=== PATIENT | male | born 1990 | race Caucasian/White ===

== ENCOUNTER 2016-06-24 18:11 | Emergency (ER) | payer SELFPAY ==
[2016-06-24] MEDS ORDERED: Fluorescein Opthalmic Strip ONE (18:26)
[2016-06-24] MEDS ORDERED: Proparacaine 0.5% Opth 15 ML BOT ONE (18:26)
== END 2016-06-24 18:54 | disposition home or self-care (01) ==
LOC: NAV ERS 18:11
DX: S05.01XA Injury of conjunctiva and corneal abrasion without foreign body, right eye, initial encounter (principal); X58.XXXA Exposure to other specified factors, initial encounter

== ENCOUNTER 2016-08-10 11:42 | Emergency (ER) | payer SELFPAY ==
[2016-08-10] MEDS ORDERED: HYDROcodone/Acetaminophen 5/325 mg Tablet ONE (12:03)
[2016-08-10] MEDS ORDERED: Clindamycin 150 MG CAP ONE (12:03)
== END 2016-08-10 12:11 | disposition home or self-care (01) ==
LOC: NAV ERS 11:42
DX: K04.7 Periapical abscess without sinus (principal)
CPT/HCPCS: 99282

== ENCOUNTER 2016-09-29 07:53 | Emergency (ER) | payer OTHER, SELFPAY ==
[2016-09-29] MEDS ORDERED: Acetaminophen 500 MG TAB ONE (08:10)
[2016-09-29] MEDS ORDERED: Ondansetron HCl/PF 4 MG/2 ML Vial ONE (08:10)
[2016-09-29] MEDS ORDERED: Sodium Chloride 0.9% 1,000 ML ONE (08:10)
[2016-09-29 08:35] LABS: #Basophils 0.1 thou/uL (0.0-0.2); #Lymphocytes 1.4 thou/uL (1.20-3.40); #Monocytes 0.7 thou/uL (0.11-0.59); %Basophils 1.2 % (0.0-1.0); %Eosinophils 0.2 % (0.0-10.0); %Lymphocytes 12.1 % (21.0-51.0); %Monocytes 6.2 % (0.0-10.0); %Neutrophils 80.3 % (42.0-75.0); Mean Corpuscular Hemoglobin 31.8 pg (27.0-31.0); Mean Corpuscular Volume 96.3 fl (80.0-94.0); Mean Platelet Volume 9.4 fL (7.4-10.4); Platelet Count 232 thou/uL (130-400); RBC Distribution Width 11.4 % (11.5-14.5); Red Blood Cell (RBC) Count 5.04 mill/uL (4.70-6.10); White Blood Cell (WBC) Count 11.3 thou/uL (4.8-10.8)
[2016-09-29 08:48] LABS: ALT (SGPT) 15 U/L (8-55); AST (SGOT) 12 U/L (5-34); Albumin 4.6 g/dL (3.5-5.0); Alkaline Phosphatase 89 U/L (40-150); Anion Gap 15 mmol/L (10-20); BUN (Urea Nitrogen) 11 mg/dL (8.9-20.6); Bilirubin, Total 0.6 mg/dL (0.2-1.2); Calc. Creatinine Clearance 0 mL/min (70-130); Calcium 9.7 mg/dL (7.8-10.44); Carbon Dioxide 24 mmol/L (22-29); Chloride 106 mmol/L (98-107); Estimated GFR-MDRD Greater than 90; Glucose 111 mg/dL (70-105); Protein, Total 7.6 g/dL (6.0-8.3); Sodium 141 mmol/L (136-145)
== END 2016-09-29 09:22 | disposition home or self-care (01) ==
LOC: NAV ERS 07:53
DX: K52.9 Noninfective gastroenteritis and colitis, unspecified (principal)
CPT/HCPCS: 80053; 85025; 96361; 96374; J2405; J7050

== ENCOUNTER 2017-06-03 13:50 | Emergency (ER) | payer SELFPAY ==
--- NOTE | 2017-06-03 14:56 | RAD ---
CHEST PA AND LATERAL: History: 27-year-old male with history of cough and fever up to 103. Chest congestion. FINDINGS: Heart size is normal. The lungs are clear. IMPRESSION: No acute intrathoracic disease. No evidence for pneumonia. POS: [facility]
== END 2017-06-03 15:02 | disposition home or self-care (01) ==
LOC: NAV ERS 13:50
DX: J10.1 Influenza due to other identified influenza virus with other respiratory manifestations (principal); F17.210 Nicotine dependence, cigarettes, uncomplicated
CPT/HCPCS: 71046; 87804

== ENCOUNTER 2019-03-16 21:05 | Emergency (ER) | payer SELFPAY | END 2019-03-16 22:05 | disposition home or self-care (01) | LOC: NAV ERS 21:05 | DX: J06.9 Acute upper respiratory infection, unspecified (principal); F32.9 Major depressive disorder, single episode, unspecified; F17.210 Nicotine dependence, cigarettes, uncomplicated | CPT/HCPCS: 99283 ==

== ENCOUNTER 2019-04-09 17:46 | Emergency (ER) | payer OTHER | END 2019-04-09 19:03 | disposition home or self-care (01) | LOC: NAV ERS 17:46 | DX: S13.9XXA Sprain of joints and ligaments of unspecified parts of neck, initial encounter (principal); S16.1XXA Strain of muscle, fascia and tendon at neck level, initial encounter; F17.220 Nicotine dependence, chewing tobacco, uncomplicated; V53.5XXA Driver of pick-up truck or van injured in collision with car, pick-up truck or van in traffic accident, initial encounter | CPT/HCPCS: 99283 ==

== ENCOUNTER 2019-06-25 04:02 | Emergency (ER) | payer SELFPAY | END 2019-06-25 04:34 | disposition home or self-care (01) | LOC: NAV ERS 04:02 | DX: K03.81 Cracked tooth (principal); F17.220 Nicotine dependence, chewing tobacco, uncomplicated | CPT/HCPCS: 99281 ==

== ENCOUNTER 2019-08-09 06:10 | Emergency (ER) | payer SELFPAY ==
[2019-08-09] MEDS ORDERED: Ibuprofen 200 MG TAB ONE (06:29)
--- NOTE | 2019-08-09 10:13 | RAD ---
LEFT SHOULDER 3 VIEWS: HISTORY: Injury, left shoulder pain. FINDINGS/IMPRESSION: No acute fracture or dislocation is identified. POS: [facility]
== END 2019-08-09 07:17 | disposition home or self-care (01) ==
LOC: NAV ERS 06:10
DX: S43.402A Unspecified sprain of left shoulder joint, initial encounter (principal); F17.220 Nicotine dependence, chewing tobacco, uncomplicated; W18.09XA Striking against other object with subsequent fall, initial encounter

== ENCOUNTER 2019-10-12 18:01 | Emergency (ER) | payer OTHER, SELFPAY ==
[2019-10-14 14:43] LABS: SARS-CoV-2 MS2 Positive; SARS-CoV-2 N Gene Positive; SARS-CoV-2 S Gene Positive; SARS-CoV-2 by NAA DETECTED (NotDetected); SARS-CoV-2 orf1ab Positive
== END 2019-10-12 18:46 | disposition home or self-care (01) ==
LOC: NAV ERS 18:01
DX: J06.9 Acute upper respiratory infection, unspecified (principal); R05 Cough; R09.89 Other specified symptoms and signs involving the circulatory and respiratory systems; Z20.828 Contact with and (suspected) exposure to other viral communicable diseases; F17.220 Nicotine dependence, chewing tobacco, uncomplicated
CPT/HCPCS: 87635; 99283; U0003

== ENCOUNTER 2020-02-17 11:40 | Emergency (ER) | payer SELFPAY ==
[2020-02-18 18:06] LABS: SARS-CoV-2 MS2 Positive; SARS-CoV-2 N Gene Negative; SARS-CoV-2 S Gene Negative; SARS-CoV-2 by NAA Not Detected (NotDetected); SARS-CoV-2 orf1ab Negative
== END 2020-02-17 12:20 | disposition home or self-care (01) ==
LOC: NAV ERS 11:40
DX: Z20.828 Contact with and (suspected) exposure to other viral communicable diseases (principal); F17.220 Nicotine dependence, chewing tobacco, uncomplicated
CPT/HCPCS: 87635; 99283; U0003

== ENCOUNTER 2021-01-29 07:53 | Emergency (ER) | payer OTHER, SELFPAY | END 2021-01-29 09:05 | disposition home or self-care (01) | LOC: NAV ERS 07:53 | DX: J20.9 Acute bronchitis, unspecified (principal); Z20.89 Contact with and (suspected) exposure to other communicable diseases; H04.559 Acquired stenosis of unspecified nasolacrimal duct; F17.220 Nicotine dependence, chewing tobacco, uncomplicated | CPT/HCPCS: 99283 ==

== ENCOUNTER 2024-10-13 21:16 | Emergency (ER) | payer SELFPAY ==
[2024-10-13] MEDS ORDERED: Ondansetron PF 4 MG/2 ML Vial ONE (22:05)
[2024-10-13 22:31] LABS: Glucose, Urine (Dipstick) Negative (Negative); Leukocyte Negative (Negative); Protein, Urine (Dipstick) Trace mg/dL (Neg-Trace); Specific Gravity, Urine 1.025 (1.005-1.030)
[2024-10-13 22:39] LABS: CAUTI Indications for Culture Dysuria,urgency,freq; WBC/HPF 0-3 HPF (0-3)
[2024-10-13 22:40] LABS: Bacteria/HPF Rare-Few HPF (None Seen); Urine Culture Reflex No No
[2024-10-13 22:41] LABS: Hematocrit 45.4 % (42.0-52.0); Hemoglobin 15.8 g/dL (14.0-18.0); Mean Corpuscular Hemoglobin 33.4 pg (27.0-31.0); Mean Corpuscular Volume 96.1 fl (78.0-98.0); Platelet Count 321 10x3/uL (130-400); Red Blood Cell (RBC) Count 4.72 mill/uL (4.70-6.10); White Blood Cell (WBC) Count 24.2 10x3/uL (4.8-10.8)
[2024-10-13 22:49] LABS: ALT (SGPT) 33 U/L (Less than 45); AST (SGOT) 33 U/L (11-34); Albumin 4.6 g/dL (3.1-4.5); Alkaline Phosphatase 56 U/L (40-110); Anion Gap 15 mmol/L (10-20); BUN (Urea Nitrogen) 15 mg/dL (8.9-20.6); Bilirubin, Total 0.7 mg/dL (0.3-1.2); Calc. Creatinine Clearance 0 mL/min (70-130); Calcium 9.8 mg/dL (7.8-10.44); Carbon Dioxide 26 mmol/L (22-29); Chloride 103 mmol/L (98-107); Globulin 2.9 g/dL (2.4-3.5); Glucose 111 mg/dL (70-105); Lipase 25 U/L (8-78); Potassium 3.8 mmol/L (3.5-5.1); Sodium 140 mmol/L (136-145)
[2024-10-13 23:03] LABS: MDiff Complete? YES; Platelet Adequacy Comment Appears Adequate
[2024-10-14] MEDS ORDERED: metroNIDAZOLE 500 MG (100 mL) BAG ONE (00:54)
== END 2024-10-14 01:50 | disposition short-term general hospital (02) ==
LOC: NAV ERS 21:16
DX: K35.80 Unspecified acute appendicitis (principal); F17.210 Nicotine dependence, cigarettes, uncomplicated
CPT/HCPCS: 74177; 80053; 81001; 83690; 85025; 93005; 96361; 96365; 96375; J2270; J2405; J7030